=== PATIENT | female | born 1995 | race African-American/Black ===

== ENCOUNTER → 2021-05-15 | Day surgery (SDC) | payer BC ==
[2021-05-09 13:44] LABS: BASOPHILS % (AUTO) 0.5 % (0-1); EOSINOPHILS # (AUTO) 0.1 X10'3 (0-0.9); EOSINOPHILS % (AUTO) 2.5 % (0-6); LYMPHOCYTES # (AUTO) 1.9 X10'3 (1.1-4.8); LYMPHOCYTES % (AUTO) 43.1 % (21-51); MEAN CORPUSCULAR HEMOGLOBIN 28.7 PG (27.0-31.0); MEAN CORPUSCULAR HGB CONC 33.3 g/dL (33.0-36.5); MEAN CORPUSCULAR VOLUME 86.3 FL (78-98); MEAN PLATELET VOLUME 7.2 FL (7.4-10.4); MONOCYTES # (AUTO) 0.2 X10'3 (0-0.9); MONOCYTES % (AUTO) 5.2 % (2-12); NEUTROPHILS # (AUTO) 2.2 X10'3 (1.8-7.7); NEUTROPHILS % (AUTO) 48.7 % (42-75); PRE OP HEMATOCRIT 43.9 % (35.0-45.0); PRE OP HEMOGLOBIN 14.6 g/dL (12.0-16.0); PRE OP PLATELET COUNT 322 X10'3 (140-440); RED BLOOD COUNT 5.09 X10'6 (4.20-5.60); RED CELL DISTRIBUTION WIDTH 13.1 % (11.5-14.5)
[2021-05-15] VITALS (7 sets, daily range): BP systolic 110–130; BP diastolic 69–96
[~2021-05-15] VITALS: Ht 152.4 cm; Wt 86.6 kg
[~2021-05-15] MED LIST: BUPIVAcaine/PF 2.5mg/ml (0.25%) 10ml vial ONE; LIDOcaine 1% 30ml preserv. free vial ONE; LIDOcaine 2% (20mg/ml) 5ml vial ONE; MIDAZolam 1 MG/ML 5ML VIAL ONE; bacitracin 15gm ointment TP ONE; cefazolin/dext.iso 2gm/100ml IV ONE; dexamethasone sod phosphate 4mg/ml inj. ONE; famotidine 20mg tablet PO ONE; fentaNYL/PF 50MCG/1 ML 2ML syringe IV PRN; fentaNYL/PF 50MCG/1 ML 2ML syringe ONE; glycopyrrolate 0.2mg/ml inj ONE; hydrALAZINE 20mg/ml inj. IV PRN; labetalol 20mg/4ml (5mg/ml) syringe IV ONE; labetalol 20mg/4ml (5mg/ml) syringe IV PRN; methylene blue (5mg/ml) 50mg/10ml ampul IV ONE; morphine 2 MG/ML inj. syringe IV PRN; morphine 4 MG/ML inj SYRINge IV PRN; neostigmine methylsulfate 1 MG/ML 10ml vial ONE; ondansetron/PF 4mg/2ml inj IV PRN; ondansetron/PF 4mg/2ml inj ONE; oxyCODONE/APAP 5-325mg tablet PO PRN; propofol inj 20 ML IV ONE; ringers solution, lacted 1,000 ML IV SCH; rocuronium 10mg/ml inj IV ONE
--- NOTE | 2021-05-15 11:30 | NUR ---
PT AWAKE VSS NO PAIN MEETS CRITERIA TO GO HOME INSTR GIVEN NO ?'S OR CONCERNS Addendum: 05/15/21 at 1216 by Sabrina Galdamez RN Amended: Links added.
--- NOTE | 2021-05-15 13:30 | NUR ---
PT STATES FEELING HOT C/O PAIN TO HEAD 05/05 MED WITH DEMEROL 25MG IV DENIES NAUSEA, BP ELEVATED CALL PLACED TO DR ESCOBAR LABETALOL 5MG IV ORDERED CONT TO MONITOR. Addendum: 05/15/21 at 1349 by Sabrina Galdamez RN Amended: Links added.
== END | disposition home or self-care (01) ==
LOC: PAS 08:02
PROVIDERS: ATTEND Surgery
DX: L05.02 Pilonidal sinus with abscess (principal); F32.9 Major depressive disorder, single episode, unspecified; F41.9 Anxiety disorder, unspecified; F12.90 Cannabis use, unspecified, uncomplicated; Z72.89 Other problems related to lifestyle; E66.9 Obesity, unspecified; Z68.35 Body mass index [BMI] 35.0-35.9, adult; Z91.010 Allergy to peanuts; Z79.899 Other long term (current) drug therapy; R97.8 Other abnormal tumor markers
CPT/HCPCS: 11772; 14000; 36415; 82948; 84702; 85025; J1100; J2001; J2250; J2405; J2704; J2710; J3010; J3490; Q9968; A4215; A4618; A6402; A7000; J7120